=== PATIENT | female | born 1945 | race Two or more races ===

== ENCOUNTER 2022-06-26 15:26 | Emergency (ER) | payer MEDICARE, BC ==
[~2022-06-26] VITALS: Ht 165.1 cm; Wt 58.1 kg
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
[2022-06-26] MEDS ORDERED: KETO10TA2 PO (17:01)
[2022-06-26] MEDS ORDERED: LORA-258 PO (17:01)
--- NOTE | 2022-06-26 18:13 | NUR ---
Patient discharged to home in stable condition. Written and verbal after care instructions given. Patient verbalizes understanding of instruction.
[2022-06-26 18:14] VITALS: BP 116/80
== END 2022-06-26 18:15 | disposition home or self-care (01) ==
LOC: ER 16:15
DX: S13.4XXA Sprain of ligaments of cervical spine, initial encounter (principal); I10 Essential (primary) hypertension; F41.9 Anxiety disorder, unspecified; Z79.899 Other long term (current) drug therapy; V89.2XXA Person injured in unspecified motor-vehicle accident, traffic, initial encounter; Y93.89 Activity, other specified; Y92.89 Other specified places as the place of occurrence of the external cause; Y99.8 Other external cause status
CPT/HCPCS: 72040-TC; 73502